=== PATIENT | female | born 1950 | race Caucasian/White ===

== ENCOUNTER 2020-05-17 13:57 | Outpatient (REF) | payer MEDICARE, OTHER, SELFPAY | END 2020-05-17 13:58 | disposition home or self-care (01) | LOC: HO.LNP 13:57 | PROVIDERS: Visit Provider Otolaryngology | DX: B37.9 Candidiasis, unspecified (principal) | CPT/HCPCS: 87102 ==

== ENCOUNTER 2022-02-22 06:33 | Day surgery (SDC) | payer MEDICARE, OTHER, SELFPAY ==
[2022-02-16 11:38] VITALS: BMI 31.9
--- NOTE | 2022-02-21 13:03 | HO.ANESPROP2 ---
Documented by User: Dottie Jeronimo NP 02/21/22 13:04 HPI - Anesthesia Eval Consult details Narrative: 71yo F for Colonoscopy *Multiple Med Allergies* PMFSH Past Medical History Medical History Anxiety Diverticulitis Elevated cholesterol Palpitations Vertigo Surgical History Surgical History H/O colonoscopy Hx of lumbar discectomy Social History Social History Patient Tobacco Use Status: Former Tobacco user Quit Date: Use of substances other than those prescribed or required for medical reasons: No Are you DNR?: No Advance Directives: No Advance Directives Information Provided: Yes Meds Allergies Allergy/AdvReac Type Severity Reaction Status Date / Time amoxicillin [From Augmentin] Allergy Unknown Unknown Verified 02/16/22 11:35 cefotaxime Allergy Unknown Unknown Verified 02/16/22 11:35 cheese Allergy Unknown Unknown Verified 02/16/22 11:35 clavulanic acid Allergy Unknown Unknown Verified 02/16/22 11:35 [From Augmentin] egg Allergy Unknown Unknown Verified 02/16/22 11:35 milk Allergy Unknown Unknown Verified 02/16/22 11:35 oats Allergy Unknown Unknown Verified 02/16/22 11:35 pineapple Allergy Unknown Unknown Verified 02/16/22 11:35 scallops Allergy Unknown Unknown Verified 02/16/22 11:35 sulfamethoxazole Allergy Unknown Unknown Verified 02/16/22 11:35 [From Bactrim] trimethoprim [From Bactrim] Allergy Unknown Unknown Verified 02/16/22 11:35 wheat Allergy Unknown Unknown Verified 02/16/22 11:35 Home Medications Medication Instructions Recorded Confirmed Last Taken Type aspirin 81 mg tablet,delayed 81 mg PO DAILY 02/16/22 02/16/22 Unknown History release lorazepam 0.5 mg tablet 0.5 mg PO TID PRN Anxiety 02/16/22 02/16/22 Unknown History meclizine 25 mg tablet 25 mg PO DAILY PRN Vertigo 02/16/22 02/16/22 Unknown History multivitamin 1 tab PO DAILY 02/16/22 02/16/22 Unknown History rosuvastatin 5 mg tablet (Crestor) 5 mg PO DAILY 02/16/22 02/16/22 Unknown History Exam Exam Date and Time: February 21, 2022 1303 Height,Weight and Vital Signs: Height 5 ft 6 in Weight 89.811 kg Assessment and Plan Assessment Anesthesia Assessment: Chart Reviewed Documented by User: Ryan Gomez MD 02/22/22 07:36 [facility] Past Medical History Medical History Anxiety Diverticulitis Elevated cholesterol Palpitations Vertigo Family History Family history of problems with anesthesia: No Surgical History Surgical History H/O colonoscopy Hx of lumbar discectomy History of Problems with Anesthesia: No Social History Social History Patient Tobacco Use Status: Former Tobacco user Quit Date: Use of substances other than those prescribed or required for medical reasons: No Are you DNR?: No Advance Directives: No Advance Directives Information Provided: Yes Meds Allergies Allergy/AdvReac Type Severity Reaction Status Date / Time amoxicillin [From Augmentin] Allergy Unknown Unknown Verified 02/16/22 11:35 cefotaxime Allergy Unknown Unknown Verified 02/16/22 11:35 cheese Allergy Unknown Unknown Verified 02/16/22 11:35 clavulanic acid Allergy Unknown Unknown Verified 02/16/22 11:35 [From Augmentin] egg Allergy Unknown Unknown Verified 02/16/22 11:35 milk Allergy Unknown Unknown Verified 02/16/22 11:35 oats Allergy Unknown Unknown Verified 02/16/22 11:35 pineapple Allergy Unknown Unknown Verified 02/16/22 11:35 scallops Allergy Unknown Unknown Verified 02/16/22 11:35 sulfamethoxazole Allergy Unknown Unknown Verified 02/16/22 11:35 [From Bactrim] trimethoprim [From Bactrim] Allergy Unknown Unknown Verified 02/16/22 11:35 wheat Allergy Unknown Unknown Verified 02/16/22 11:35 Home Medications Medication Instructions Recorded Confirmed Last Taken Type aspirin 81 mg tablet,delayed 81 mg PO DAILY 02/16/22 02/16/22 Unknown History release lorazepam 0.5 mg tablet 0.5 mg PO TID PRN Anxiety 02/16/22 02/16/22 Unknown History meclizine 25 mg tablet 25 mg PO DAILY PRN Vertigo 02/16/22 02/16/22 Unknown History multivitamin 1 tab PO DAILY 02/16/22 02/16/22 Unknown History rosuvastatin 5 mg tablet (Crestor) 5 mg PO DAILY 02/16/22 02/16/22 Unknown History Exam Airway Mallampati Class: II TM Dist: >3cm Neck ROM: Full Loose/Missing/Broken Teeth: No Heart: [id number] Lungs: cta b/l Assessment and Plan Assessment Anesthesia Assessment: Anesthesia Plan Discussed Final Anesthetic Review Family History of Problems with Anesthesia: No History of Problems with Anesthesia: No NPO: Yes ASA Class: II Final Preanesthetic Review: No Changes in Pt Med Stat, Meds/Allgs Chart Reviewed, Consent Obtained/Reviewed and Anes Risks/Benef Reviewed Patient Risk: Intermediate Procedure Risk: Low Assessment/Block/Sedation in SS: Assess/Block/Sedation-SS Anesthetic Plan Anesthetic Plan: MAC: and Agree w/ Assess. and Plan Disposition: Standard PACU
[2022-02-22 06:55] VITALS: BP 145/62; PULSE 80; RESP 18; TEMP 36.5; O2SAT 95
[2022-02-22] MEDS: Lactated Ringers 1,000 ML 100 ML IVCONT (07:17)
[2022-02-22 08:19] VITALS: BP 93/35; PULSE 67; RESP 16; TEMP 36.1; O2SAT 98
--- NOTE | 2022-02-22 08:21 | PM.OP ---
Brief Operative Note Date of Service: 02/22/22 Pre-op diagnosis: Screening Post-op diagnosis: other (Diverticulosis) Procedure: Colonoscopy to the cecum and TI Surgeon: Kody Xiong Anesthesia: MAC Was an [employer] Operator used for this Procedure?: No Estimated blood loss (mL): 0 Pathology: none sent Condition: stable Disposition: PACU
[2022-02-22 08:34] VITALS: BP 108/39; PULSE 60; RESP 16; O2SAT 98
[2022-02-22 08:49] VITALS: BP 131/51; PULSE 60; RESP 16; TEMP 36.6; O2SAT 98
--- NOTE | 2022-02-22 10:12 | OP_ITS ---
02/22/2022 SURGEON: Kody Xiong MD INDICATIONS: The patient presents for evaluation of colorectal cancer screening. Full consent has been obtained from her for this, including risks of bleeding and perforation. PREOPERATIVE DIAGNOSIS: Colorectal cancer screening. POSTOPERATIVE DIAGNOSIS: PROCEDURE PERFORMED: Colonoscopy to the cecum and terminal ileum. ESTIMATED BLOOD LOSS: COMPLICATIONS: ANESTHESIA: Monitored anesthesia care. ASSISTANTS: SPECIMENS: POSTOPERATIVE DIAGNOSES: Colorectal cancer screening, diverticulosis, internal hemorrhoids. DESCRIPTION OF PROCEDURE: The patient was placed in the left lateral decubitus position. The digital rectal exam revealed no abnormalities. The Olympus video pediatric colonoscope was entered into the rectum and advanced to the cecum. Advancement past the sigmoid colon with diverticulosis was somewhat difficult. Once in the cecum, I did identify a normal-appearing cecal pouch with appendiceal orifice and a normal-appearing ileocecal valve. The terminal ileum was cannulated and appeared normal. The scope was withdrawn back in the colon. The entire cecum and ileocecal valve appeared normal. The scope was slowly withdrawn assessing all mucosal surfaces carefully. Preparation was excellent. I did not visualize any sign of polyps, colitis, nor angiodysplasia. There was a moderate amount of diverticulosis in the sigmoid colon. In the rectum, the scope was retroflexed visualizing internal hemorrhoids, but no other pathology. The rectal mucosa appeared normal. The scope was straightened and withdrawn from the patient. She tolerated the procedure well and was returned to the recovery area in stable condition. IMPRESSION: 1. Diverticulosis. 2. Internal hemorrhoids. PLAN: Given her age and today's negative exam, and her negative family history of colon cancer, I do not think she will need any further screening colonoscopies. She will otherwise see me on a p.r.n. basis. She was advised to resume her aspirin and fish oil today. She will see me on a p.r.n. basis. MD CHUNG Price/AJAY / [id number] MTDD
== END 2022-02-22 09:50 | disposition home or self-care (01) ==
PROVIDERS: PCP Family Medicine; Visit Provider Internal Medicine
PROC: 0DJD8ZZ Inspection of Lower Intestinal Tract, Via Natural or Artificial Opening Endoscopic (ICD-10-PCS; CPT 45378; principal; 2022-02-22 07:30)
DX: Z12.11 Encounter for screening for malignant neoplasm of colon (principal); K57.30 Diverticulosis of large intestine without perforation or abscess without bleeding; K64.8 Other hemorrhoids; R42 Dizziness and giddiness; E78.00 Pure hypercholesterolemia, unspecified; F41.1 Generalized anxiety disorder; Z87.19 Personal history of other diseases of the digestive system; Z79.82 Long term (current) use of aspirin; Z88.1 Allergy status to other antibiotic agents; Z88.2 Allergy status to sulfonamides; Z79.899 Other long term (current) drug therapy; Z88.8 Allergy status to other drugs, medicaments and biological substances; Z87.891 Personal history of nicotine dependence
CPT/HCPCS: G0121